=== PATIENT | female | born 1960 | race Caucasian/White ===

== ENCOUNTER 2024-01-25 10:59 | Outpatient (RCR) | payer MEDICAID, SELFPAY ==
--- NOTE | 2024-01-25 11:59 | CTCCONSULT_ITS ---
[facility] [address] [place], [place] [address] Consultation Note Date: 01/25/2024 MR#: [id number] Name: JOSE ASHBY : 1960 Dx: C82.93 Follicular lymphoma, unspecified, intra-abdominal lymph nodes Attending physician. DEBI Matthew Referring physician. Neal black Reason for consultation. 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 History of Present Illness: Patient is a 63-year-old lady admitted to [facility] in May with abdominal pain weight loss and subsequent PET 08/04/2023 revealed widespread adenopathy involving left neck chest abdomen pelvic right inguinal thigh regions. Excisional biopsy of right groin lymph node 07/01/2023 revealed follicular lymphoma. Undergoing systemic therapy with rituximab and Bendamu bruna under Dr. Larsen's direction. Subsequent PET scan 12/08/2023 shows marked improvement compared to the PET in July which only showed a slight uptake in left scapular region which may be artifactual. 01/09/2024 plain x-ray revealed moderate narrowing of the glenohumeral joint. Patient is quite bot hered by the left shoulder pain however despite taking oxycodone 5 mg twice daily. Attempt to supple mented with Tylenol or nonsteroidal such as ibuprofen were ineffective and caused stomach upset. Jackie mckeon referred for pain management. Past Medical History: JEFF 15 years ago pacemaker 20 years ago prior C-sections. Meds. Albuterol allopurinol Citra plan diazepam fluticasone inhaler gabapentin oxycodone 5 twice amado ly. 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 Nondrinker Review of Systems: Has significant pain in left shoulder with little relief with oxycodone 5 mg twice daily. Physical Exam: General: Well-appearing lady no acute distress HEENT: Atraumatic normocephalic extraocular intact no oral lesion no cervical or supraclavicular juilus opathy CV: Chest clear to auscultation heart regular rate and rhythm ABD: Soft no organomegaly or tenderness EXT: Has some tenderness in left scapular region; cannot abduct or flex left arm beyond about 90 degr ees. Assessment:1. 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 Brown?s direction. 2. Excellent radiographic (PET 12/08/2023) response, with pain in left shoulder appearing to be more degenerative joint related. (X-ray 01/09/2024) ) noticeably limited in left shoulder range of motio n. 3. Not having relief with oxycodone 5 twice daily. Cannot take ibuprofen due to GI upset problems. Has tried Tylenol without help as well. 4. Told patient that she can take oxycodone 5 3 times daily for the time being. Recommended to sup plement this with Tylenol every 6 as needed along with heating pads and range of motion exercises to left shoulder 5. I will see her again in 1 month time. Electronically signed by: Kapil Treviño MD, DABR 01/25/2024 11:57 AM Oxy
== END 2024-02-18 23:59 | disposition home or self-care (01) ==
LOC: SCTC 10:59
PROVIDERS: PCP Nurse Practitioner Family; Referring Provider Nurse Practitioner Family; Visit Provider Radiology Therapeutic Radiology
DX: C82.93 Follicular lymphoma, unspecified, intra-abdominal lymph nodes (principal)
CPT/HCPCS: 99213; G0463

== ENCOUNTER 2024-02-28 14:39 | Outpatient (RCR) | payer MEDICAID, SELFPAY ==
--- NOTE | 2024-02-22 12:12 | CTCFLWUP_ITS ---
Patient: ROSETTE KERNS : 1960 Page 6 of 6 FOLLOW UP NOTE DATE OF SERVICE 02/22/2024 NAME: ROSETTE KERNS ACCOUNT: [id number] : 1960 AGE: 63 DIAGNOSIS: stage IV follicular lymphoma grade 1?2 (07/01/2023) with pulmonary metastatic nodules, symp tomatic with abdominal pain and weight loss at the time of diagnosis s/p BR times 6 and now on mainta nce ritasuxin Completed rituximab and Bendamustine (08/24/2023??01/18/2024) History of pacemaker placement 20 years ago. Normal LVEF 50-55%. History of cigarette smoking stopped about 2 weeks ago. REASON FOR TODAY?S VISIT: she is complaining of ANDOMINAL cramps with the laxative she is taking. Pat ient is doing well otherwise. No new complains. HISTORY OF PRESENT ILLNESS: Rosette Kerns is a 63-year-old ENG speaking female with following oncology history. 05/31/2023: The patient was seen at [facility] emergency department due to abdominal pain. CT scan of the abdomen and pelvis with IV contrast was done 06/29/2023: Ms. Kerns was admitted to [facility]. CT scan of the chest, abdomen and pelvis with IV contrast was performed due to persistent abdominal p ain as well as due to findings on the previous CT scan. 07/01/2023: Ms. Kerns had right groin lymph node excisional biopsy as well as Chemo-Port placement. 07/26/2023: Echocardiogram?LVEF 50-55%. 08/04/2023: PET/CT scan 08/24/2023: Ms. Kerns received first cycle of rituximab and Bendamustine. PAST MEDICAL HISTORY: Follicular lymphoma - dx 07/01/23 COPD CHF Neuropathy GERD Insomia Depression / Anxiety PAST SURGICAL HISTORY: PC placement - 07/01/23 JEFF - 15 yrs ago Pacemaker - 20 yrs ago x 3 - 1983; 1987; 1990 MEDICATIONS: 1. albuterol sulfate - 90 mcg/actuation 2 Puff(s) Every 4 Hours 2. allopurinol - 300 mg 1 tab po q daily 3. citalopram - 20 mg 1 tab Daily 4. diazePAM - 2 mg 1 tab Every day before sleep 5. fluticasone propion-salmeteroL - 230-21 mcg/actuation 1 Inhaler Daily 6. gabapentin - 300 mg 1 Capsule Twice a Day 7. hydrocodone-acetaminophen - 5-325 mg 1 tab every 6 hours for 30 Days 8. linaCLOtide - 290 mcg 1 Capsule Daily 9. Linzess - 290 mcg 1 Capsule Daily 10. ondansetron - 8 mg 1 tab Three times a day 11. oxycodone - 5 mg 1 tab one tab po q 6 hours prn 12. pantoprazole - 40 mg 1 tab Daily 13. zolpidem - 5 mg 1 tab Every day before sleep Medications Last Reconciled by Katlyn Rogers MA on 11/02/2023 ALLERGIES: mirtazapine; latex; morphine REVIEW OF SYSTEMS: Neurological: No headache, seizures or blurring of vision. Gastrointestinal: No nausea, vomiting, diarrhea or constipation. Cardiovascular: No palpitations or angina pains. Respiratory: No cough, chest pain or shortness of breath. PHYSICAL EXAMINATION: VITAL SIGNS: Temperature?98.2, B/P?101/77, Oxygen?Saturation?98% Weight?128?lbs (Change?since?10/25/23: ?-7.2?lbs) PAIN: 0 - No pain EYE: Conjunctivae is white MOUTH: Oral cavity is dry. CHEST: Clear to auscultation. No wheezes or rales audible. CARDIAC: Rhythm regular, no murmurs or gallops present. ABDOMEN: Soft. No hepatomegaly. No splenomegaly. EXTREMITIES: No pedal edema or cyanosis Restricted range of motion at shoulders. 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 History of pacemaker placement 20 years ago. Normal the LVEF 50-55%. History of cigarette smoking stopped and is now on nicotine replacement PET scan do not show any lymphadenopathy but show activity in the left shoulder Patient likely have arthritis but also give a history of fall. Advised to follow-up on the x-ray to see if she has fracture Patient is on chronic pain management for her pain in her back which happened from her accident. David l refer to pain management Echo is ordered PET SCAN IN 3 MONTHS TO SEE RESPONSE TO TREATMENT LDH and URIC acid every 3 months Electronically Signed by: {Object.Sanct_ID*PnP.NameFL@M}, {Object.Sanct_ID*PnP.Suffix@U} D: {Object.Sanct_Date} T: {Object.Sanct_Time} CC: PCP: Referring: Nhung Barba This document was completed utilizing speech recognition software. Grammatical errors, random word in sertions, pronoun errors, and incomplete sentences are an occasional consequence of this system due t o software limitations, ambient noise, and hardware issues. Any formal questions or concerns about th e content, text or information contained within the body of this dictation should be directly address ed to the provider for clarification.
== END 2024-03-20 23:59 | disposition home or self-care (01) ==
LOC: SCTC 14:39
PROVIDERS: PCP Nurse Practitioner Family; Referring Provider Nurse Practitioner Family; Visit Provider Radiology Therapeutic Radiology
DX: C82.15 Follicular lymphoma grade II, lymph nodes of inguinal region and lower limb (principal); C78.00 Secondary malignant neoplasm of unspecified lung; Z87.891 Personal history of nicotine dependence; M19.012 Primary osteoarthritis, left shoulder
CPT/HCPCS: 96523; 99212; 99213; A4216; J1642; G0463

== ENCOUNTER → 2024-04-10 | Outpatient (CLI) | payer MEDICAID, SELFPAY ==
--- NOTE | 2024-04-10 14:00 | ECHO_ITS ---
Transthoracic Echo Report Ht (in): 62 Wt (lb): 130 Exam Location: Echo Lab Status: Preadmit Cube Machine Tender: Lindsay Quinones Indications: Procedure Performed: BP: / HR: Technical Quality: Fair MEASUREMENTS (Male / Female) Normal Values 2D ECHO LV Diastolic Diameter PLAX 4.4 cm 4.2 - 5.9 / 3.9 - 5.3 cm LV Systolic Diameter PLAX 3.4 cm IVS Diastolic Thickness 0.8 cm 0.6 - 1.0 / 0.6 - 0.9 cm LVPW Diastolic Thickness 0.8 cm 0.6 - 1.0 / 0.6 - 0.9 cm LV Relative Wall Thickness 0.3 LVOT Diameter 1.8 cm LA Volume Index 27.6 cm?/m? 16 - 28 cm?/m? Ascending Aorta Diameter 2.6 cm M-MODE LV Diastolic Diameter MM 5.2 cm 4.2 - 5.9 / 3.9 - 5.3 cm LV Systolic Diameter MM 4.0 cm LV Ejection Fraction MM Teich 46.7 % IVS Diastolic Thickness MM 1.1 cm 0.6 - 1.0 / 0.6 - 0.9 cm LVPW Diastolic Thickness MM 1.0 cm 0.6 - 1.0 / 0.6 - 0.9 cm LV Relative Wall Thickness MM 0.4 0.24 - 0.42 / 0.22 - 0.42 LV Mass Index MM 127.8 g/m? 49 - 115 / 43 - 95 g/m? Aortic Root Diameter MM 2.6 cm LA Systolic Diameter MM 3.2 cm LA Ao Ratio MM 1.2 AV Cusp Separation MM 1.5 cm DOPPLER AV Peak Velocity 155.0 cm/s AV Peak Gradient 9.6 mmHg AV Mean Gradient 5.0 mmHg AV Velocity Time Integral 29.9 cm AI Peak Velocity 375.0 cm/s AI Peak Gradient 56.3 mmHg AI Pressure Half Time 869.0 ms LVOT Peak Velocity 80.5 cm/s LVOT Peak Gradient 2.6 mmHg LVOT Velocity Time Integral 17.1 cm AV Area Cont Eq vti 1.5 cm? AV Area Cont Eq pk 1.3 cm? MV Peak Velocity 77.5 cm/s MV Peak Gradient 2.4 mmHg MV Mean Velocity 52.4 cm/s MV Mean Gradient 1.0 mmHg MV Area PHT 3.9 cm? MR Peak Velocity 284.0 cm/s MR Peak Gradient 32.3 mmHg Mitral E Point Velocity 59.7 cm/s Mitral A Point Velocity 81.5 cm/s Mitral E to A Ratio 0.7 LV E' Lateral Velocity 6.1 cm/s Mitral E to LV E' Lateral Ratio 9.8 LV E' Septal Velocity 6.7 cm/s Mitral E to LV E' Septal Ratio 8.9 TR Peak Velocity 213.0 cm/s TR Peak Gradient 18.1 mmHg FINDINGS Left Ventricle Normal left ventricular size, wall thickness. Low normal function. The ejection fraction is visuall y estimated at 45-50%. Right Ventricle The right ventricle is normal in size and systolic function. The estimated right ventricular systoli c pressure, 25mmHg. RAP 5. Pacing wire present. Left Atrium The left atrium is normal by two-dimensional, color flow and Doppler imaging with no structural abnormalities, no thrombus formation present. Right Atrium The right atrium is normal by two-dimensional imaging, color flow and Doppler imaging with no struct ural abnormalities, no thrombus formation present. Atrial Septum The interatrial septum appears normal with no evidence of a shunt. Aorta The aorta is normal by two-dimensional, color flow and Doppler interrogation. Mitral Valve The mitral valve is normal by two-dimensional, color flow and Doppler interrogation. There is mild mitral valve regurgitation. Aortic Valve The aortic valve is trileaflet and normal by two-dimensional, color flow and Doppler interrogation. There is mild aortic valve regurgitation. Tricuspid Valve The tricuspid valve is normal by two-dimensional, color flow and Doppler interrogation. There is mil d tricuspid valve regurgitation. Pulmonic Valve There is no significant pulmonic valve regurgitation. Vessels The pulmonary artery appears normal. The inferior vena cava pulmonary and hepatic veins appear ector l. Pericardium The pericardium is normal by two-dimensional imaging. There is no significant pericardial effusion. CONCLUSIONS Normal LV size. Low normal function. Estimated EF 45-50% Normal RV size and function. Pacing wire present Mild MR, AI, TR. Lin Santamaria (Electronically Signed) Final Date: 11 April 2024 08:22
== END | disposition home or self-care (01) ==
LOC: SDIM 13:38
PROVIDERS: PCP Nurse Practitioner Family; Referring Provider Internal Medicine Hematology & Oncology; Visit Provider Internal Medicine Hematology & Oncology
DX: I08.3 Combined rheumatic disorders of mitral, aortic and tricuspid valves (principal); C82.93 Follicular lymphoma, unspecified, intra-abdominal lymph nodes
CPT/HCPCS: 93306

== ENCOUNTER 2024-04-24 15:18 | Outpatient (RCR) | payer MEDICAID, SELFPAY ==
[2024-04-23 16:50] LABS: Basophils # (Auto) 0.1 Thou/mm3 (0.0-0.2); Basophils % (Auto) 1 % (0-2.5); Eosinophils # (Auto) 0.2 Thou/mm3 (0.0-0.5); Eosinophils % (Auto) 4 % (0-10); Hematocrit 30.8 % (36.0-46.0); Hemoglobin 10.6 g/dL (12.0-16.0); Immature Granulocytes % (Auto) 1 % (0-0); Immature Granulocytes Auto 0.03 Thou/mm3 (0.00-0.00); Lymphocytes # (Auto) 0.5 Thou/mm3 (1.0-4.8); Lymphocytes % (Auto) 10 % (10-50); Mean Corpuscular HGB Conc 34.4 g/dl (31.0-37.0); Mean Corpuscular Hemoglobin 31.3 pg (25.0-35.0); Mean Corpuscular Volume 91 fL (80-100); Monocytes # (Auto) 0.7 Thou/mm3 (0.0-0.8); Monocytes % (Auto) 16 % (0-12); Neutrophils # (Auto) 3.1 Thou/mm3 (1.8-7.7); Neutrophils % (Auto) 67 % (37-80); Nucleated Red Blood Cell % 0 /100 WBC (0); Platelet Count 176 Thou/mm3 (140-440); Red Blood Count 3.39 Miln/mm3 (4.00-5.20); White Blood Count 4.6 Thou/mm3 (3.6-11.0)
[2024-04-23 17:11] LABS: Alanine Aminotransferase 19 U/L (10-49); Albumin, Serum 4.1 gm/dL (3.4-4.8); Albumin/Globulin Ratio 1.8 (1.2-2.2); Alkaline Phosphatase 63 U/L (46-116); Anion Gap 7 (7-16); Aspartate Amino Transferase 25 U/L (0-34); BUN/Creatinine Ratio 16 Ratio (12-20); Bilirubin,Total 0.9 mg/dL (0.3-1.2); Blood Urea Nitrogen 13 mg/dL (9-23); Calcium 9.1 mg/dL (8.3-10.6); Calcium (Corrected) 9.1 mg/dL (8.5-10.1); Carbon Dioxide 25.1 mMol/L (20.0-31.0); Chloride 107 mMol/L (98-107); Creatinine (Component) 0.8 mg/dL (0.6-1.3); Globulin 2.3 gm/dL (2.3-3.5); Glucose 75 mg/dL (74-106); Osmolality,Calculated 276 (275-295); Potassium 3.6 mMol/L (3.4-5.1); Sodium 139 mMol/L (136-145); Total Protein 6.4 gm/dL (5.7-8.2); eGFR > 60 See Note
--- NOTE | 2024-04-29 21:04 | CTCFLWUP_ITS ---
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 Normal LVEF 50-55%. History of cigarette smoking stopped about 2 weeks ago. DATE OF DIAGNOSIS: 07/01/2023 follicular lymphoma STAGE/TNM: Stage IV grade 1-2 Enlarged lymph nodes both in the chest as well as abdomen and pelvis TREATMENT HISTORY: Care?Plan Start?Date Cycle Day Intent Rituxan?375?+?Bendamustine?90?Krystal 08/24/2023 1 28 Palliative Rituximab?375mg/m*2?maint?q?2month 03/27/2024 1 60 Maintenance HISTORY OF PRESENT ILLNESS: Rosette Ashby is a 63-year-old ENG speaking female with following oncology history. 05/31/2023: The patient was seen at [facility] emergency department due to abdominal pain. CT scan of the abdomen and pelvis with IV contrast was done 06/29/2023: Ms. Ahsby was admitted to [facility]. CT scan of the chest, abdomen and pelvis with IV contrast was performed due to persistent abdominal pain as well as due to findings on the previous CT scan. 07/01/2023: Ms. Ashby had right groin lymph node excisional biopsy as well as Chemo-Port placement. 07/26/2023: Echocardiogram?LVEF 50-55%. 08/04/2023: PET/CT scan 08/24/2023: Ms. Ashby received first cycle of rituximab and Bendamustine. OTHER MEDICAL HISTORY/CONDITIONS: Follicular lymphoma - dx 07/01/23 COPD CHF Neuropathy GERD Insomia Depression / Anxiety PC placement - 07/01/23 JEFF - 15 yrs ago Pacemaker - 20 yrs ago x 3 - 1983; 1987; 1990 FAMILY HISTORY: Cancer?History:?Pt?adopted SOCIAL HISTORY: Occupational?History:?Retired - [employer] Education?Level:?College Graduate, 2 year degree Marital?Status:? Tobacco?Pack?per?Day:?1 Tobacco?Use?Years:?45 Tobacco?Use:?Quit?2?weeks?ago ETOH?Use:?Denies Drug?Note:?Smokes marijuana 3 times / week x 2 yrs Social?History?Note:?Lives?with? [employer] HISTORY: Menarche?-?Age:?15 Menopause:?20yrs?ago :?3 Live?Births:?3 Age?1st?:?22 MEDICATIONS: 1. albuterol sulfate - 90 mcg/actuation 2 Puff(s) Every 4 Hours 2. citalopram - 20 mg 1 tab Daily 3. diazePAM - 2 mg 1 tab Every day before sleep 4. fluticasone propion-salmeteroL - 230-21 mcg/actuation 1 Inhaler Daily 5. gabapentin - 300 mg 1 Capsule Twice a Day 6. linaCLOtide - 290 mcg 1 Capsule Daily 7. Linzess - 290 mcg 1 Capsule Daily 8. ondansetron - 8 mg 1 tab Three times a day 9. oxycodone - 5 mg 1 tab four times a day 10. pantoprazole - 40 mg 1 tab Daily 11. zolpidem - 5 mg 1 tab Every day before sleep Medications Last Reconciled by Princess Jasso MA on 04/24/2024 ALLERGIES: mirtazapine; latex; morphine REVIEW OF SYSTEMS: A complete 14-point review of systems was performed and is negative except as noted in interval history. PHYSICAL EXAMINATION: VITAL SIGNS: Temperature?98, B/P?128/80, Oxygen?Saturation?99% Weight?132.4?lbs (Change?since?04/23/24:?2?lbs) PAIN: 0 - No pain ECOG Performance Status: 0 - Asymptomatic and fully active GENERAL APPEARANCE: Appears well, in no apparent distress, appropriately interactive. HEENT: Normocephalic, no temporal wasting, normal conjunctiva, no scleral icterus, normal hearing, lips without lesions, neck normal range of motion. Small less than a centimeter lymph nodes in the neck CARDIOVASCULAR: Not assessed. PULMONARY: Normal respiratory effort, no respiratory distress or use of accessory muscles, speaking in full sentences, no tachypnea. EXTREMITIES: No pedal edema or cyanosis. SKIN: Normal skin appearance. NEUROLOGIC: Alert and oriented x4. PSHYCHIATRIC: Appropriate affect, mood normal, behavior normal, intact thought and speech. 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 Normal LVEF 50-55%. Continue Rituxan #2 history of cigarette smoking stopped Patient's last PET CT scan showed no hypermetabolism except in the left shoulder and x-ray was done and it showed arthritis.#2 history of pacemaker placement 20 years ago. Normal the LVEF 50-55%. #3 history of cigarette smoking stopped and is now on nicotine replacement #4 pain management PET scan do not show any lymphadenopathy but show activity in the left shoulder Patient likely have arthritis but also give a history of fall. Advised to follow-up on the x-ray to see if she has fracture Patient is on chronic pain management with Dr. Treviño. Advised to follow-up with him. CBC CMP LDH uric acid RETURN TO CLINIC: 4 months BILLING AND COMPLIANCE: I reviewed external records from providers outside my specialty as summarized above. I spent a total of 50 minutes on this patient?s care on the day of their visit excluding time spent related to any billed procedures. This time includes time spent with the patient as well as time spent documenting in the medical record, reviewing patients records and tests, obtaining history, placing orders, communicating with other healthcare professionals, counseling the patient, family or caregiver, and/or care coordination for the diagnoses above. Electronically Signed by: Nelson Brown MD T: 9:01 PM CC: PCP: Referring: Nhung Barba This document was completed utilizing speech recognition software. Grammatical errors, random word insertions, pronoun errors, and incomplete sentences are an occasional consequence of this system due to software limitations, ambient noise, and hardware issues. Any formal questions or concerns about the content, text or information contained within the body of this dictation should be directly addressed to the provider for clarification.
[2024-05-21 11:16] LABS: Basophils # (Auto) 0.1 Thou/mm3 (0.0-0.2); Basophils % (Auto) 1 % (0-2.5); Eosinophils # (Auto) 0.2 Thou/mm3 (0.0-0.5); Eosinophils % (Auto) 4 % (0-10); Hematocrit 35.5 % (36.0-46.0); Hemoglobin 11.8 g/dL (12.0-16.0); Immature Granulocytes % (Auto) 0 % (0-0); Immature Granulocytes Auto 0.02 Thou/mm3 (0.00-0.00); Lymphocytes # (Auto) 0.5 Thou/mm3 (1.0-4.8); Lymphocytes % (Auto) 10 % (10-50); Mean Corpuscular HGB Conc 33.2 g/dl (31.0-37.0); Mean Corpuscular Hemoglobin 30.8 pg (25.0-35.0); Mean Corpuscular Volume 93 fL (80-100); Monocytes # (Auto) 0.7 Thou/mm3 (0.0-0.8); Monocytes % (Auto) 14 % (0-12); Neutrophils # (Auto) 3.4 Thou/mm3 (1.8-7.7); Neutrophils % (Auto) 70 % (37-80); Nucleated Red Blood Cell % 0 /100 WBC (0); Platelet Count 254 Thou/mm3 (140-440); RDW Standard Deviation 42.6 fL (36.4-46.3); Red Blood Count 3.83 Miln/mm3 (4.00-5.20); White Blood Count 4.9 Thou/mm3 (3.6-11.0)
[2024-05-21 11:38] LABS: Alanine Aminotransferase 26 U/L (10-49); Albumin, Serum 4.9 gm/dL (3.4-4.8); Albumin/Globulin Ratio 2.2 (1.2-2.2); Alkaline Phosphatase 75 U/L (46-116); Anion Gap 10 (7-16); Aspartate Amino Transferase 37 U/L (0-34); BUN/Creatinine Ratio 11 Ratio (12-20); Bilirubin,Total 0.9 mg/dL (0.3-1.2); Blood Urea Nitrogen 10 mg/dL (9-23); Calcium 10.1 mg/dL (8.3-10.6); Calcium (Corrected) 10.1 mg/dL (8.5-10.1); Carbon Dioxide 25.4 mMol/L (20.0-31.0); Chloride 107 mMol/L (98-107); Creatinine (Component) 0.9 mg/dL (0.6-1.3); Globulin 2.2 gm/dL (2.3-3.5); Glucose 93 mg/dL (74-106); Osmolality,Calculated 282 (275-295); Potassium 3.4 mMol/L (3.4-5.1); Sodium 142 mMol/L (136-145); Total Protein 7.1 gm/dL (5.7-8.2); eGFR > 60 See Note
== END 2024-05-18 23:59 | disposition home or self-care (01) ==
LOC: SCTC 15:18
PROVIDERS: Internal Medicine Hematology & Oncology; PCP Nurse Practitioner Family; Referring Provider Nurse Practitioner Family; Visit Provider Nurse Practitioner Family
DX: C82.13 Follicular lymphoma grade II, intra-abdominal lymph nodes (principal); C78.00 Secondary malignant neoplasm of unspecified lung; Z87.891 Personal history of nicotine dependence; M19.012 Primary osteoarthritis, left shoulder
CPT/HCPCS: 36591; 80053; 85025; 96374; 99212; A4216; J1642; J2997; G0463

== ENCOUNTER 2024-05-29 13:43 | Outpatient (RCR) | payer MEDICAID, SELFPAY | END 2024-06-18 23:59 | disposition home or self-care (01) | LOC: SCTC 13:43 | PROVIDERS: PCP Nurse Practitioner Family; Referring Provider Nurse Practitioner Family; Visit Provider Radiology Therapeutic Radiology | DX: Z51.11 Encounter for antineoplastic chemotherapy (principal); C82.13 Follicular lymphoma grade II, intra-abdominal lymph nodes; C78.00 Secondary malignant neoplasm of unspecified lung; G89.3 Neoplasm related pain (acute) (chronic) | CPT/HCPCS: 36591; 80053; 85025; 96413; 96415; 99213; A4216; J1642; J7040; J7050; Q5115; A9270; G0463 ==

== ENCOUNTER 2024-06-18 08:00 | Emergency (ER) | payer MEDICAID, SELFPAY ==
[2024-06-18 08:01] VITALS: BMI 24.5
[2024-06-18 08:12] VITALS: BP 147/74; PULSE 79; RESP 17; TEMP 36.8; O2SAT 97
[2024-06-18 08:36] LABS: Collection Type, Urine Clean Catch
[2024-06-18 08:46] LABS: Basophils # (Auto) 0.1 Thou/mm3 (0.0-0.2); Basophils % (Auto) 2 % (0-2.5); Eosinophils # (Auto) 0.4 Thou/mm3 (0.0-0.5); Eosinophils % (Auto) 7 % (0-10); Hematocrit 32.9 % (36.0-46.0); Hemoglobin 11.4 g/dL (12.0-16.0); Immature Granulocytes % (Auto) 0 % (0-0); Immature Granulocytes Auto 0.02 Thou/mm3 (0.00-0.00); Lymphocytes # (Auto) 0.5 Thou/mm3 (1.0-4.8); Lymphocytes % (Auto) 10 % (10-50); Mean Corpuscular HGB Conc 34.7 g/dl (31.0-37.0); Mean Corpuscular Hemoglobin 31.1 pg (25.0-35.0); Mean Corpuscular Volume 90 fL (80-100); Monocytes # (Auto) 0.8 Thou/mm3 (0.0-0.8); Monocytes % (Auto) 17 % (0-12); Neutrophils # (Auto) 3.2 Thou/mm3 (1.8-7.7); Neutrophils % (Auto) 64 % (37-80); Nucleated Red Blood Cell % 0 /100 WBC (0); Platelet Count 244 Thou/mm3 (140-440); RDW Standard Deviation 41.7 fL (36.4-46.3); Red Blood Count 3.66 Miln/mm3 (4.00-5.20)
[2024-06-18 08:52] LABS: Bacteria,Urine 1+; Bilirubin,Urine Negative (Negative); Blood,Urine Negative (Negative); Clarity,Urine Clear (Clear/Hazy); Color,Urine Lt-Yellow (Lt Yel-Yel); Glucose, Urine Negative (Negative); Ketones,Urine Negative (Negative); Leukocyte Esterase,Urine Negative (Negative); Nitrite,Urine Negative (Negative); Protein,Urine Negative (Neg - Trace); RBC,Urine 1 /hpf (0-3); Specific Gravity,Urine 1.012 (1.001-1.035); Squamous Epithelial Cell,Urine 4 /hpf (0-5); Urobilinogen,Urine Negative mg/dL (0.0-1.0); WBC,Urine 1 /hpf (0-5)
[2024-06-18 08:53] LABS: Culture Indicated,Urine Yes
[2024-06-18 09:10] LABS: Alanine Aminotransferase 15 U/L (10-49); Albumin, Serum 4.4 gm/dL (3.4-4.8); Albumin/Globulin Ratio 1.8 (1.2-2.2); Alkaline Phosphatase 59 U/L (46-116); Anion Gap 7 (7-16); Aspartate Amino Transferase 24 U/L (0-34); BUN/Creatinine Ratio 11 Ratio (12-20); Bilirubin,Total 0.9 mg/dL (0.3-1.2); Blood Urea Nitrogen 11 mg/dL (9-23); Calcium 9.3 mg/dL (8.3-10.6); Calcium (Corrected) 9.3 mg/dL (8.5-10.1); Carbon Dioxide 24.6 mMol/L (20.0-31.0); Chloride 110 mMol/L (98-107); Estimated Creatinine Clearance 50.1 mL/min (>60); Globulin 2.4 gm/dL (2.3-3.5); Glucose 96 mg/dL (74-106); Lipase 40 U/L (12-53); Osmolality,Calculated 282 (275-295); Sodium 142 mMol/L (136-145); Total Protein 6.8 gm/dL (5.7-8.2); eGFR > 60 See Note
--- NOTE | 2024-06-18 09:36 | EDNOTE_ITS ---
<Statement entered by Angle Adler MD - 06/18/24 17:56> As co-signing physician, I was present and available for consult prn. I concur with the plan and care as documented by the midlevel provider. ED Abdominal Pain RME/HPI General Chief Complaint: Abdominal Pain Stated complaint: RIGHT FLANK PAIN WITH RASH TO AREA [id number] Time seen by provider: 06/18/24 08:19 Arrival date/time: 06/18/24 08:00 63-year-old female with lymphoma presents to the emergency department today with complaints of rash to the right flank patient is concerned that it might be her kidney causing to have pain Limitations: no limitations Related Data Home Medications ?Medication ?Instructions ?Recorded ?Confirmed diazepam 2 mg tablet (Valium) 2 mg PO HS #0 tabs 08/0206/30/23 albuterol sulfate 90 mcg/actuation 2 puff inhalation Q 4H PRN SOB 05/30/19 06/30/23 aerosol inhaler gabapentin 300 mg capsule 300 mg PO BID 05/30/1906/29 citalopram 20 mg tablet 20 mg PO QDAY 06/27/2306/29 linaclotide 290 mcg capsule 290 mcg PO QDAY 06/27/23 0 06/30/23 zolpidem 5 mg tablet 5 mg PO QHS 06/27/23 4 fluticasone propionate 230 See Rx Instructions .Route .COMPLEX 07/01/23 07/01/23 mcg-salmeterol 21 mcg/actuation HFA inhaler Previous Rx's ?Medication ?Instructions ?Recorded pantoprazole 40 mg tablet,delayed 40 mg PO QDAY #30 ta bs 07/10/19 release (Protonix) valacyclovir 1 gram tablet 1,000 mg PO TID 7 days #21 tabs 06/18/24 Allergies Allergy/AdvReac Type Severity Reaction Status Date / Time adhesive tape Allergy Severe BLISTERS Verified 06/18/24 08:03 morphine Allergy Severe Hives Verified 06/18/24 08:03 Review of Systems Review of Systems Systems Reviewed: All systems reviewed, normal except as documented Constitutional Constitutional: Reports system reviewed and no additional complaints, except as documented, Denies fever(s) and Denies headache(s) Eyes Eyes: Reports system reviewed and no additional complaints, except as documented and Denies blurry vision ENT Ears, Nose, Mouth, and Throat: Reports system reviewed and no additional complaints, except as documented, Denies headache(s), Denies nasal congestion and Denies nasal discharge Cardiovascular Cardiovascular: Reports system reviewed and no additional complaints, except as documented, Denies chest pain and Denies dyspnea Respiratory Respiratory: Reports system reviewed and no additional complaints, except as documented, Denies chest congestion, Denies cough and Denies dyspnea Gastrointestinal Gastrointestinal: Reports system reviewed and no additional complaints, except as documented and Denies abdominal pain Integumentary/Breasts Skin/Breast: Reports system reviewed and no additional complaints, except as documented and Reports other (Shingles right flank) Neurologic Neurologic: Reports system reviewed and no additional complaints, except as documented, Reports as per HPI and Denies headache(s) Past Medical History Past Medical History NEUROLOGIC: Negative Seizures CARDIAC: Positive Cardiac Disorders and Congestive Heart Failure RESPIRATORY: Positive Chronic Obstructive Pulmonary Disease (COPD) and Asthma GENITOURINARY: Negative Renal Disease ENDOCRINE: Negative Diabetes Mellitus Type 1 or Diabetes Mellitus Type 2 HEMATOLOGIC: Negative Sickle Cell Disease OTHER HISTORY: Positive Blood Transfusions; Negative Blood Transfusion Reaction or Anesthesia Reactions Surgical History SURGICAL: Positive Pacemaker and Hysterectomy Social History SMOKING STATUS: Former smoker SECOND HAND EXPOSURE: No SUBSTANCE USE: marijuana (smokes daily) ED Exam General Limitations: Present no limitations General appearance: Present alert and in no apparent distress Head Head exam: Present atraumatic Eye Eye exam: Present normal appearance, PERRL and EOMI ENT ENT exam: Present normal exam, normal oropharynx and mucous membranes moist Neck Neck exam: Present normal inspection, full ROM and trachea midline Chest Chest inspection: Present normal inspection and symmetric chest wall rise Respiratory Respiratory exam: Present normal lung sounds bilaterally Cardiovascular Cardiovascular exam: Present regular rate, normal rhythm and normal heart sounds Abdominal Exam Abdominal exam: Present soft and normal bowel sounds Extremities Exam Extremities exam: Present normal inspection and full ROM Back Exam Back exam: Present normal inspection and full ROM Neurological Exam Neurological exam: Present alert, oriented X3 and CN II-XII intact Psychiatric Psychiatric exam: Present normal affect and normal mood Skin Skin exam: Present warm, dry and other (Painful vesicular rash right flank) Course Quality Measures none Orders Category Date Time Status CBC Stat Lab 06/18/24 08:33 Completed Comprehensive Metabolic Panel Stat Lab 06/18/24 08:33 Completed Lipase Stat Lab 06/18/24 08:33 Completed UA, C/S IF [Urinalysis, C/S if Indicated] Stat Lab 06/18/24 08:20 Completed Urine Culture Stat Lab 06/18/24 08:20 Received Ketorolac Inj [Toradol Inj] Med 06/18/24 09:37 Discontinued 30 mg IM X1 ONE Potassium Chloride [K-Dur] Med 06/18/24 09:37 Discontinued 40 meq PO X1 ONE Vital Signs Vital signs: Vital Signs Temperature 98.3 F 06/18/24 08:12 Pulse Rate 79 06/18/24 08:12 Respiratory Rate 17 06/18/24 08:12 Blood Pressure 147/74 H 06/18/24 08:12 Pulse Oximetry (%) 97 06/18/24 08:12 Oxygen Delivery Method Room Air 06/18/24 08:12 O2 saturation 97% room air within normal limits Abdominal Pain MDM MDM Narrative MDM Narrative:: 63-year-old female with lymphoma presents to the emergency department today with complaints of rash to the right flank patient is concerned that it might be her kidney causing to have pain On exam patient clearly has shingles to the right flank region Patient given Toradol for pain Lab work obtained per the patient's request kidney function unremarkable Incidentally patient noted to be hypokalemic at 3.0 patient given 1 dose of potassium here, discharged with valacyclovir Patient reports that she has oxycodone at home instructed her to take the medication Patient discharged home in no distress to follow-up with primary care doctor in the next 24 to 48 hours and for any worsening symptoms to return to the ER immediately Patient data External records reviewed:: [facility] previous records Clinical information provided by:: patient Social determinants that could affect healthcare access:: none Patient has the following chronic illnesses:: See history How is presenting disease/condition affected by chronic disease/condition?: exacerbated by Evaluation data The following diagnostics were reviewed and interpreted by me:: lab results Lab and/or radiology exams considered but not ordered:: Lab obtain Interpretation Summary: Obtain Medications / Prescriptions Medications or Prescriptions considered but not ordered:: Given Medication administrations:: Medication Administration History Discontinued Medications Ketorolac Tromethamine (Ketorolac Inj 30 Mg/Ml Vial) 30 mg IM X1 ONE Stop: 06/18/24 09:38 Last Admin: 06/18/24 10:19 Dose: 30 mg Documented By: ANKUR Potassium Chloride (Potassium Chloride 20 Meq Tabcr) 40 meq PO X1 ONE Stop: 06/18/24 09:38 Last Admin: 06/18/24 10:18 Dose: 40 meq Documented By: DB Given Consultations Consultation(s) initiated? (list below): No Diagnosis Differential diagnosis abdominal pain: abdominal pain, calculus of kidney, constipation, pancreatitis and other Most likely diagnosis given after review of the tests above:: Herpes zoster Admission Indicated Admission indicated?: not indicated Admission Request Was there a request for admission?: No Disposition Plan Disposition Plan: Discharge Discharge Attestation Discharge Attestation: The patient and all family members were given an opportunity to ask questions and understood the discharge instructions. Discharge instructions specifically effects, indications for sooner follow up or return to the emergency department, and the expected course of current diagnosis. Patient condition: Stable Discharge Plan Plan Patient Disposition: HOME (Self Care) Disposition Comment: Stable Prescriptions/Referrals Prescriptions/Med Rec: New valacyclovir 1 gram tablet 1,000 mg PO TID 7 Days Qty: 21 0RF No Action citalopram 20 mg tablet 20 mg PO QDAY linaclotide 290 mcg capsule 290 mcg PO QDAY zolpidem 5 mg tablet 5 mg PO QHS Rx Instructions: may repeat once if no response in 30-60 minutes diazepam [Valium] 2 MG tablet 2 mg PO HS Qty: 0 gabapentin 300 mg Capsule 300 mg PO BID albuterol sulfate 90 mcg/actuation HFA aerosol inhaler 2 puff INH Q4H PRN (Reason: SOB) pantoprazole [Protonix] 40 mg tablet,delayed release (DR/EC) 40 mg PO QDAY Qty: 30 0RF fluticasone propion-salmeterol 230-21 mcg/actuation Hfa Aerosol Inhaler See Rx Instructions .ROUTE .COMPLEX Rx Instructions: one inhalation daily Referrals: Nhung Barba NP [Primary Care Provider] - In 1 week Problem List Clinical Impression: Shingles rash, Acute hypokalemia Patient/Caregiver Discharge Instructions Education Materials: Shingles (Herpes Zoster) Additional Instructions: Please follow up with your primary care doctor in the next 24-48hrs for any worsening symptoms return here immediately Print Language: Romanian Stand Alone Forms: Heike Award Info., Patient Portal Info Letter PA/BANK SECRECY ACT OFFICER Supervising Physician PA/BANK SECRECY ACT OFFICER Supervising Physician: Dr. ADLER
[2024-06-18] MEDS: POTASSIUM CHLORIDE 20 mEq TABCR 40 MEQ PO (10:18)
[2024-06-18] MEDS: KETOROLAC INJ 30 MG/ML VIAL IM (10:19)
== END 2024-06-18 10:23 | disposition home or self-care (01) ==
PROVIDERS: Nurse Practitioner Primary Care; Emergency Provider Emergency Medicine; PCP Nurse Practitioner Family
DX: B02.9 Zoster without complications (principal); E87.6 Hypokalemia
CPT/HCPCS: 36415; 80053; 81001; 83690; 85025; 87086; 96372; 99283; J1885; A9270

== ENCOUNTER 2024-06-28 13:21 | Outpatient (RCR) | payer MEDICAID, SELFPAY ==
--- NOTE | 2024-06-26 23:48 | CTCFLWUP_ITS ---
Patient: JOSE ASHBY : 1960 Page 3 of 4 FOLLOW UP NOTE DATE OF SERVICE: 06/26/2024 NAME: JOSE ASHBY ACCOUNT: [id number] : 1960 AGE: 63 INTERVAL HISTORY: Patient is complaining of insect bite on her thigh which has been blistering. She does not know what caused to the bite exactly. She has fatigue and tiredness. She does not want to go to the emergency room. ONCOLOGY HISTORY: DIAGNOSIS: Follicular lymphoma, unspecified, intra-abdominal lymph nodes [ICD10] C82.93 DATE OF DIAGNOSIS: STAGE/TNM: TREATMENT HISTORY: Care?Plan Start?Date Cycle Day Intent Rituxan?375?+?Bendamustine?90?Krystal 08/24/2023 1 28 Palliative Rituximab?375mg/m*2?maint?q?2month 05/22/2024 1 60 Maintenance HISTORY OF PRESENT ILLNESS: OTHER MEDICAL HISTORY/CONDITIONS: Follicular lymphoma - dx 07/01/23 COPD CHF Neuropathy GERD Insomia Depression / Anxiety PC placement - 07/01/23 JEFF - 15 yrs ago Pacemaker - 20 yrs ago x 3 - 1983; 1987; 1990 FAMILY HISTORY: Cancer?History:?Pt?adopted SOCIAL HISTORY: Occupational?History:?Retired - [employer] Education?Level:?College Graduate, 2 year degree Marital?Status:? Tobacco?Pack?per?Day:?1 Tobacco?Use?Years:?45 Tobacco?Use:?Quit?2?weeks?ago ETOH?Use:?Denies Drug?Note:?Smokes marijuana 3 times / week x 2 yrs Social?History?Note:?Lives?with? REHABILITATION PSYCHOLOGIST HISTORY: Menarche?-?Age:?15 Menopause:?20yrs?ago :?3 Live?Births:?3 Age?1st?:?22 MEDICATIONS: 1. acyclovir - 400 mg 1 tab twice Daily 2. albuterol sulfate - 90 mcg/actuation 2 Puff(s) Every 4 Hours 3. Augmentin - 500-125 mg 1 tab 1 tab twice dialy 4. citalopram - 20 mg 1 tab Daily 5. diazePAM - 2 mg 1 tab Every day before sleep 6. fluticasone propion-salmeteroL - 230-21 mcg/actuation 1 Inhaler Daily 7. gabapentin - 300 mg 1 Capsule Twice a Day 8. hydrOXYzine HCl - 50 mg 1 tab Daily 9. linaCLOtide - 290 mcg 1 Capsule Daily 10. Linzess - 290 mcg 1 Capsule Daily 11. lisinopril - 10 mg 1 tab Daily 12. ondansetron - 8 mg 1 tab Three times a day 13. oxycodone - 5 mg 1 tab four times a day 14. pantoprazole - 40 mg 1 tab Daily 15. zolpidem - 5 mg 1 tab Every day before sleep Medications Last Reconciled by Princess Paredes MD on 06/26/2024 ALLERGIES: mirtazapine; latex; morphine REVIEW OF SYSTEMS: A complete 14-point review of systems was performed and is negative except as noted in interval history. PHYSICAL EXAMINATION: VITAL SIGNS: Temperature?98.6, B/P?123/86, Oxygen?Saturation?98% Weight?134?lbs (Change?since?05/29/24:?1?lbs) PAIN: 2 - Mild pain ECOG Performance Status: 1 - Symptomatic; ambulatory; restricted in strenuous activity GENERAL APPEARANCE: Appears well, in no apparent distress, appropriately interactive. HEENT: Normocephalic, no temporal wasting, normal conjunctiva, no scleral icterus, normal hearing, lips without lesions, neck normal range of motion. CARDIOVASCULAR: Not assessed. PULMONARY: Normal respiratory effort, no respiratory distress or use of accessory muscles, speaking in full sentences, no tachypnea. EXTREMITIES: No pedal edema or cyanosis. SKIN: Redness with some blistering over the left thigh noted over the camera Shingles noted over the belly NEUROLOGIC: Alert and oriented x4. PSHYCHIATRIC: Appropriate affect, mood normal, behavior normal, intact thought and speech. LABORATORY DATA: I have personally reviewed and interpreted each of the patient?s relevant lab tests, abnormal findings are below: Date 05/21/24 06/18/24 ??WHITE?BLOOD?COUNT?(Thou/mm3) 4.9 5.0 ??RED?BLOOD?COUNT?(Miln/mm3) 3.83?L 3.66?L ??HEMOGLOBIN?(gm/dl) 11.8?L 11.4?L ??HEMATOCRIT?(%) 35.5?L 32.9?L ??PLATELET?COUNT?(Thou/mm3) 254 244 ??NEUTROPHILS?%,?AUTO?(%) 70 64 ??LYMPH?%,?AUTO?(%) 10 10 ??NEUTROPHILS,?AUTO?(Thou/mm3) 3.4 3.2 ??GLUCOSE,RANDOM?(mg/dL) 93 96 ??BLOOD?UREA?NITROGEN?(mg/dL) 10 11 ??CREATININE?(mg/dL) 0.90 1.00 ??SODIUM?(mmol/L) 142 142 ??POTASSIUM?(mmol/L) 3.4 3.0?L ??CHLORIDE?(mmol/L) 107 110?H ??CrCl?(CandG)?(ml/min) 61.63 55.55 ??AST/SGOT?(Unit/L) 37?H 24 ??ALT/SGPT?(Unit/L) 26 15 ??ALKALINE?PHOSPHATASE?(Unit/L) 75 59 ??BILIRUBIN,?TOTAL?(mg/dL) 0.9 0.9 ??PROTEIN?TOTAL?(gm/dl) 7.1 6.8 ??ALBUMIN,?SERUM?(gm/dl) 4.9?H 4.4 ??GLOBULIN?(gm/dl) 2.2?L 2.4 ??ALBUMIN/GLOBULIN?RATIO 2.2 1.8 ??CALCIUM,?SERUM?(mg/dL) 10.1 9.3 ??CALCIUM?SERUM?(CORRECTED)?(mg/dL) 10.1 9.3 ASSESSMENT/PLAN: #1 cellulitis of her thigh and shingles on the abdomen in patient with 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 Normal LVEF 50-55%. Will start acyclovir 400 mg twice daily Will start Augmentin for her thigh She is having cellulitis likely Advised patient to go to the emergency room Will will bring her to the clinic as patient is unwilling to the emergency room Will treat her with IV fluids tomorrow and repeat labs #2 history of cigarette smoking stopped Patient's last PET CT scan showed no hypermetabolism except in the left shoulder and x-ray was done and it showed arthritis.#2 history of pacemaker placement 20 years ago. Normal the LVEF 50-55%. #3 history of cigarette smoking stopped and is now on nicotine replacement #4 pain management PET scan do not show any lymphadenopathy but show activity in the left shoulder Patient likely have arthritis but also give a history of fall. Advised to follow-up on the x-ray to see if she has fracture Patient is on chronic pain management with Dr. Treviño. Advised to follow-up with him. ORDERS: Order # Description [id number] Comprehensive Metabolic Panel - 12 + CBC with Auto Diff [id number] MD Follow Up 3 Months RETURN TO CLINIC: Tomorrow BILLING AND COMPLIANCE: I reviewed external records from providers outside my specialty as summarized above. I spent a total of 50 minutes on this patient?s care on the day of their visit excluding time spent related to any billed procedures. This time includes time spent with the patient as well as time spent documenting in the medical record, reviewing patients records and tests, obtaining history, placing orders, communicating with other healthcare professionals, counseling the patient, family or caregiver, and/or care coordination for the diagnoses above. Electronically Signed by: {Object.Sanct_ID*PnP.NameFL@M}, {Object.Sanct_ID*PnP.Suffix@U} D: {Object.Sanct_Date} T: {Object.Sanct_Time} CC: PCP: Referring: Nhung Barba This document was completed utilizing speech recognition software. Grammatical errors, random word insertions, pronoun errors, and incomplete sentences are an occasional consequence of this system due to software limitations, ambient noise, and hardware issues. Any formal questions or concerns about the content, text or information contained within the body of this dictation should be directly addressed to the provider for clarification.
[2024-06-28 14:05] LABS: Basophils # (Auto) 0.1 Thou/mm3 (0.0-0.2); Basophils % (Auto) 2 % (0-2.5); Eosinophils # (Auto) 0.5 Thou/mm3 (0.0-0.5); Eosinophils % (Auto) 7 % (0-10); Hematocrit 32.2 % (36.0-46.0); Immature Granulocytes % (Auto) 1 % (0-0); Immature Granulocytes Auto 0.03 Thou/mm3 (0.00-0.00); Lymphocytes # (Auto) 0.7 Thou/mm3 (1.0-4.8); Lymphocytes % (Auto) 10 % (10-50); Mean Corpuscular HGB Conc 34.2 g/dl (31.0-37.0); Mean Corpuscular Hemoglobin 31.6 pg (25.0-35.0); Mean Corpuscular Volume 93 fL (80-100); Monocytes # (Auto) 0.9 Thou/mm3 (0.0-0.8); Monocytes % (Auto) 13 % (0-12); Neutrophils # (Auto) 4.5 Thou/mm3 (1.8-7.7); Neutrophils % (Auto) 68 % (37-80); Nucleated Red Blood Cell % 0 /100 WBC (0); Platelet Count 271 Thou/mm3 (140-440); RDW Standard Deviation 43.8 fL (36.4-46.3); Red Blood Count 3.48 Miln/mm3 (4.00-5.20); White Blood Count 6.6 Thou/mm3 (3.6-11.0)
[2024-06-28 14:26] LABS: Alanine Aminotransferase 19 U/L (10-49); Albumin, Serum 4.1 gm/dL (3.4-4.8); Albumin/Globulin Ratio 1.8 (1.2-2.2); Alkaline Phosphatase 66 U/L (46-116); Anion Gap 5 (7-16); Aspartate Amino Transferase 34 U/L (0-34); BUN/Creatinine Ratio 8 Ratio (12-20); Bilirubin,Total 0.8 mg/dL (0.3-1.2); Blood Urea Nitrogen 8 mg/dL (9-23); Calcium 9.4 mg/dL (8.3-10.6); Calcium (Corrected) 9.4 mg/dL (8.5-10.1); Chloride 110 mMol/L (98-107); Globulin 2.3 gm/dL (2.3-3.5); Glucose 103 mg/dL (74-106); Osmolality,Calculated 283 (275-295); Potassium 3.5 mMol/L (3.4-5.1); Sodium 143 mMol/L (136-145); Total Protein 6.4 gm/dL (5.7-8.2); eGFR > 60 See Note
== END 2024-07-18 23:59 | disposition home or self-care (01) ==
LOC: SCTC 13:21
PROVIDERS: PCP Nurse Practitioner Family; Referring Provider Nurse Practitioner Family; Visit Provider Internal Medicine Hematology & Oncology
DX: C82.13 Follicular lymphoma grade II, intra-abdominal lymph nodes (principal); C78.00 Secondary malignant neoplasm of unspecified lung; B02.9 Zoster without complications; L03.116 Cellulitis of left lower limb; Z87.891 Personal history of nicotine dependence; M19.012 Primary osteoarthritis, left shoulder; Z95.0 Presence of cardiac pacemaker
CPT/HCPCS: 80053; 85025; 96360; 96361; 96374; J1200; J1642; J7030; Q3014

== ENCOUNTER 2024-07-23 08:50 | Outpatient (RCR) | payer MEDICAID, SELFPAY ==
[2024-07-20 10:45] LABS: Basophils # (Auto) 0.1 Thou/mm3 (0.0-0.2); Basophils % (Auto) 2 % (0-2.5); Eosinophils # (Auto) 0.4 Thou/mm3 (0.0-0.5); Eosinophils % (Auto) 5 % (0-10); Hematocrit 32.9 % (36.0-46.0); Hemoglobin 11.6 g/dL (12.0-16.0); Immature Granulocytes % (Auto) 1 % (0-0); Immature Granulocytes Auto 0.04 Thou/mm3 (0.00-0.00); Lymphocytes # (Auto) 0.7 Thou/mm3 (1.0-4.8); Lymphocytes % (Auto) 8 % (10-50); Mean Corpuscular HGB Conc 35.3 g/dl (31.0-37.0); Mean Corpuscular Hemoglobin 31.6 pg (25.0-35.0); Mean Corpuscular Volume 90 fL (80-100); Monocytes # (Auto) 0.9 Thou/mm3 (0.0-0.8); Monocytes % (Auto) 11 % (0-12); Neutrophils # (Auto) 6.2 Thou/mm3 (1.8-7.7); Neutrophils % (Auto) 74 % (37-80); Nucleated Red Blood Cell % 0 /100 WBC (0); Platelet Count 240 Thou/mm3 (140-440); RDW Standard Deviation 42.2 fL (36.4-46.3); Red Blood Count 3.67 Miln/mm3 (4.00-5.20); White Blood Count 8.4 Thou/mm3 (3.6-11.0)
[2024-07-20 11:16] LABS: Uric Acid 6.5 mg/dL (3.1-7.8)
[2024-07-20 11:19] LABS: Alanine Aminotransferase 13 U/L (10-49); Albumin, Serum 4.3 gm/dL (3.4-4.8); Alkaline Phosphatase 61 U/L (46-116); Anion Gap 6 (7-16); Aspartate Amino Transferase 26 U/L (0-34); BUN/Creatinine Ratio 13 Ratio (12-20); Bilirubin,Total 0.7 mg/dL (0.3-1.2); Blood Urea Nitrogen 13 mg/dL (9-23); Calcium 9.4 mg/dL (8.3-10.6); Calcium (Corrected) 9.4 mg/dL (8.5-10.1); Carbon Dioxide 27.8 mMol/L (20.0-31.0); Chloride 108 mMol/L (98-107); Globulin 2.2 gm/dL (2.3-3.5); Glucose 107 mg/dL (74-106); LDH (Lactate Dehydrogenase) 209 U/L (120-246); Osmolality,Calculated 283 (275-295); Potassium 4.3 mMol/L (3.4-5.1); Sodium 142 mMol/L (136-145); Total Protein 6.5 gm/dL (5.7-8.2); eGFR > 60 See Note
== END 2024-08-18 23:59 | disposition home or self-care (01) ==
LOC: SCTC 08:50
PROVIDERS: PCP Nurse Practitioner Family; Referring Provider Nurse Practitioner Family; Visit Provider Internal Medicine Hematology & Oncology
DX: Z51.11 Encounter for antineoplastic chemotherapy (principal); C82.15 Follicular lymphoma grade II, lymph nodes of inguinal region and lower limb; L03.116 Cellulitis of left lower limb; B02.9 Zoster without complications; Z87.891 Personal history of nicotine dependence; M19.012 Primary osteoarthritis, left shoulder; Z95.0 Presence of cardiac pacemaker
CPT/HCPCS: 36591; 80053; 83615; 84550; 85025; 96413; 96415; A4216; J1642; J7050; Q5115; A9270

== ENCOUNTER → 2024-07-25 | Outpatient (CLI) | payer MEDICAID, SELFPAY ==
--- NOTE | 2024-07-25 14:30 | ECHO_ITS ---
Transthoracic Echo Report Ht (in): 62 Wt (lb): 132 Exam Location: Echo Lab Status: Preadmit Camp Program Director: LUI Fenton^^^^ Indications: Procedure Performed: BP: / HR: MEASUREMENTS (Male / Female) Normal Values 2D ECHO LV Diastolic Diameter PLAX 5.0 cm 4.2 - 5.9 / 3.9 - 5.3 cm LV Systolic Diameter PLAX 3.0 cm IVS Diastolic Thickness 0.6 cm 0.6 - 1.0 / 0.6 - 0.9 cm LVPW Diastolic Thickness 0.8 cm 0.6 - 1.0 / 0.6 - 0.9 cm LV Relative Wall Thickness 0.3 LVOT Diameter 1.7 cm Aortic Root Diameter 3.0 cm LA Systolic Diameter LX 2.9 cm 3.0 - 4.0 / 2.7 - 3.8 cm LV Ejection Fraction MOD 4C 58.5 % LV Ejection Fraction 4C AL 60.5 % LV Ejection Fraction MOD 2C 58.8 % LV Ejection Fraction 2C AL 60.7 % LA Volume Index 16.5 cm?/m? 16 - 28 cm?/m? DOPPLER AV Peak Velocity 153.0 cm/s AV Peak Gradient 9.4 mmHg AV Mean Gradient 6.0 mmHg AV Velocity Time Integral 28.9 cm AI Peak Velocity 233.5 cm/s AI Peak Gradient 21.8 mmHg AI Pressure Half Time 404.0 ms LVOT Peak Velocity 66.5 cm/s LVOT Peak Gradient 1.8 mmHg LVOT Velocity Time Integral 21.0 cm AV Area Cont Eq vti 1.6 cm? AV Area Cont Eq pk 1.0 cm? TR Peak Velocity 245.3 cm/s TR Peak Gradient 24.1 mmHg PV Peak Velocity 81.8 cm/s PV Peak Gradient 2.7 mmHg RVOT Peak Velocity 45.1 cm/s FINDINGS Left Ventricle Normal left ventricular size, wall thickness, systolic function with no obvious regional wall motion abnormalities. There is grade I diastolic dysfunction of the left ventricle (impaired relaxation pattern). The left ventricular ejection fraction is normal, estimated at 55-60%. Right Ventricle The right ventricle is normal in size and systolic function. The estimated right ventricular systolic pressure, 25 mmHg. Left Atrium The left atrium is normal by two-dimensional, color flow and Doppler imaging with no structural abnormalities, no thrombus formation present. Right Atrium The right atrium is normal by two-dimensional imaging, color flow and Doppler imaging with no structural abnormalities, no thrombus formation present. Atrial Septum The interatrial septum appears normal with no evidence of a shunt. Aorta The aorta is normal by two-dimensional, color flow and Doppler interrogation. Mitral Valve Trace to mild mitral regurgitation. Mild mitral annular calcification. Aortic Valve Aortic valve sclerosis. Trace to mild aortic valve regurgitation. Tricuspid Valve There is mild tricuspid valve regurgitation. Pulmonic Valve Trivial pulmonic valve regurgitation. Vessels The pulmonary artery appears normal. The inferior vena cava pulmonary and hepatic veins appear normal. Pericardium The pericardium is normal by two-dimensional imaging. There is no significant pericardial effusion. CONCLUSIONS indication: Pacemaker LV appears normal with EF 55-60%. RV appears normal with RVSP 25 mmHg. Trace-mild MR & MAC AOV sclerosis Mild TR Lin Santamaria (Electronically Signed) Final Date: 26 Jul 2024 12:00
== END | disposition home or self-care (01) ==
LOC: SDIM 14:10
PROVIDERS: PCP Nurse Practitioner Family; Referring Provider Internal Medicine Hematology & Oncology; Visit Provider Internal Medicine Hematology & Oncology
DX: I08.1 Rheumatic disorders of both mitral and tricuspid valves (principal); C82.93 Follicular lymphoma, unspecified, intra-abdominal lymph nodes
CPT/HCPCS: 93306

== ENCOUNTER 2024-08-29 13:44 | Outpatient (RCR) | payer MEDICAID, SELFPAY ==
--- NOTE | 2024-08-29 14:41 | CTCFLWUP_ITS ---
[facility] [address] [place], [place] [address] FOLLOW-UP NOTE Date: 08/29/2024 MR#: [id number] Name: JOSE ASHBY : 1960 Dx: C82.93 Follicular lymphoma, unspecified, intra-abdominal lymph nodes Identification. Completed Rituxan Bendamustine currently on maintenance Rituxan under Dr. Brown's direction Recently recovered from Insect bite and shingles infections. Refilled pt?s oxycodone 5 mg q6 CURES website checked. Side effects discussed. Electronically signed by: Kapil Treviño M.D. 08/29/2024 2:38 PM
== END 2024-09-17 23:59 | disposition home or self-care (01) ==
LOC: SCTC 13:44
PROVIDERS: PCP Nurse Practitioner Family; Referring Provider Nurse Practitioner Family; Visit Provider Radiology Therapeutic Radiology
DX: C82.15 Follicular lymphoma grade II, lymph nodes of inguinal region and lower limb (principal)
CPT/HCPCS: 99213; G0463

== ENCOUNTER 2024-09-25 10:40 | Outpatient (RCR) | payer MEDICAID, SELFPAY ==
[2024-09-24 08:31] LABS: Basophils # (Auto) 0.1 Thou/mm3 (0.0-0.2); Basophils % (Auto) 2 % (0-2.5); Eosinophils # (Auto) 0.2 Thou/mm3 (0.0-0.5); Eosinophils % (Auto) 4 % (0-10); Hematocrit 30.8 % (36.0-46.0); Hemoglobin 10.8 g/dL (12.0-16.0); Immature Granulocytes Auto 0.02 Thou/mm3 (0.00-0.00); Lymphocytes # (Auto) 0.6 Thou/mm3 (1.0-4.8); Lymphocytes % (Auto) 11 % (10-50); Mean Corpuscular HGB Conc 35.1 g/dl (31.0-37.0); Mean Corpuscular Hemoglobin 32.3 pg (25.0-35.0); Mean Corpuscular Volume 92 fL (80-100); Monocytes # (Auto) 0.7 Thou/mm3 (0.0-0.8); Monocytes % (Auto) 13 % (0-12); Neutrophils # (Auto) 3.7 Thou/mm3 (1.8-7.7); Neutrophils % (Auto) 71 % (37-80); Nucleated Red Blood Cell # 0.00 Thou/mm3 (0.00-0.00); Nucleated Red Blood Cell % 0 /100 WBC (0); Platelet Count 206 Thou/mm3 (140-440); RDW Standard Deviation 42.5 fL (36.4-46.3); Red Blood Count 3.34 Miln/mm3 (4.00-5.20); White Blood Count 5.3 Thou/mm3 (3.6-11.0)
[2024-09-24 08:51] LABS: Alanine Aminotransferase 19 U/L (10-49); Albumin, Serum 4.4 gm/dL (3.4-4.8); Albumin/Globulin Ratio 2.0 (1.2-2.2); Alkaline Phosphatase 63 U/L (46-116); Anion Gap 4 (7-16); Aspartate Amino Transferase 29 U/L (0-34); BUN/Creatinine Ratio 19 Ratio (12-20); Bilirubin,Total 0.6 mg/dL (0.3-1.2); Blood Urea Nitrogen 27 mg/dL (9-23); Calcium 9.9 mg/dL (8.3-10.6); Calcium (Corrected) 9.9 mg/dL (8.5-10.1); Carbon Dioxide 26.5 mMol/L (20.0-31.0); Chloride 111 mMol/L (98-107); Creatinine (Component) 1.4 mg/dL (0.6-1.3); Globulin 2.2 gm/dL (2.3-3.5); Glucose 101 mg/dL (74-106); Osmolality,Calculated 286 (275-295); Potassium 4.5 mMol/L (3.4-5.1); Sodium 141 mMol/L (136-145); Total Protein 6.6 gm/dL (5.7-8.2); eGFR 42 See Note
--- NOTE | 2024-09-26 05:41 | CTCFLWUP_ITS ---
Patient: JOSE ASHBY : 1960 Page 4 of 5 FOLLOW UP NOTE DATE OF SERVICE: 09/25/2024 NAME: JOSE ASHBY ACCOUNT: [id number] : 1960 AGE: 64 INTERVAL HISTORY: Patient is complaining of insect bite on her thigh which has been blistering. She does not know what caused to the bite exactly. She has fatigue and tiredness. She does not want to go to the emergency room. ONCOLOGY HISTORY: DIAGNOSIS: Follicular lymphoma, unspecified, intra-abdominal lymph nodes [ICD10] C82.93 Follicular lymphoma grade 1?2 (07/01/2023), symptomatic with abdominal pain and weight loss History of pacemaker placement 20 years ago. Questionable history of CHF. History of cigarette smoking stopped about 2 weeks ago. 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 symptomatic with abdominal pain and weight loss baseline LVEF 50 to 55% and status post 6 cycles of Bendamustine and rituximab now on maintenance rituximab TREATMENT HISTORY: Care?Plan Start?Date Cycle Day Intent Rituximab?375mg/m*2?maint?q?2month 05/22/2024 1 60 Maintenance Rituxan?375?+?Bendamustine?90?Krystal 08/24/2023 1 28 Palliative HISTORY OF PRESENT ILLNESS: OTHER MEDICAL HISTORY/CONDITIONS: Follicular lymphoma - dx 07/01/23 COPD CHF Neuropathy GERD Insomia Depression / Anxiety PC placement - 07/01/23 JEFF - 15 yrs ago Pacemaker - 20 yrs ago x 3 - 1983; 1987; 1990 FAMILY HISTORY: Cancer?History:?Pt?adopted SOCIAL HISTORY: Occupational?History:?Retired - [employer] Education?Level:?College Graduate, 2 year degree Marital?Status:? Tobacco?Pack?per?Day:?1 Tobacco?Use?Years:?45 Tobacco?Use:?Quit?2?weeks?ago ETOH?Use:?Denies Drug?Note:?Smokes marijuana 3 times / week x 2 yrs Social?History?Note:?Lives?with? IGNITER CAPPER HISTORY: Menarche?-?Age:?15 Menopause:?20yrs?ago :?3 Live?Births:?3 Age?1st?:?22 MEDICATIONS: 1. acyclovir - 400 mg 1 tab twice Daily 2. albuterol sulfate - 90 mcg/actuation 2 Puff(s) Every 4 Hours 3. citalopram - 20 mg 1 tab Daily 4. Coreg - 3.125 mg 3.13 tab Twice a Day 5. diazePAM - 2 mg 1 tab Every day before sleep 6. fluticasone propion-salmeteroL - 230-21 mcg/actuation 1 Inhaler Daily 7. gabapentin - 300 mg 1 Capsule Twice a Day 8. hydrOXYzine HCl - 50 mg 1 tab Daily 9. linaCLOtide - 290 mcg 1 Capsule Daily 10. Linzess - 290 mcg 1 Capsule Daily 11. lisinopril - 10 mg 1 tab Daily 12. ondansetron - 8 mg 1 tab Three times a day 13. oxycodone - 5 mg 1 tab four times a day 14. pantoprazole - 40 mg 1 tab Daily 15. zolpidem - 5 mg 1 tab Every day before sleep Medications Last Reconciled by Princess Jasso MA on 09/25/2024 ALLERGIES: mirtazapine; latex; morphine REVIEW OF SYSTEMS: A complete 14-point review of systems was performed and is negative except as noted in interval history. PHYSICAL EXAMINATION: VITAL SIGNS: Temperature?98.9, B/P?96/69, Oxygen?Saturation?96% PAIN: 0 - No pain ECOG Performance Status: 1 - Symptomatic; ambulatory; restricted in strenuous activity GENERAL APPEARANCE: Appears well, in no apparent distress, appropriately interactive. HEENT: Normocephalic, no temporal wasting, normal conjunctiva, no scleral icterus, normal hearing, lips without lesions, neck normal range of motion. CARDIOVASCULAR: Not assessed. PULMONARY: Normal respiratory effort, no respiratory distress or use of accessory muscles, speaking in full sentences, no tachypnea. EXTREMITIES: No pedal edema or cyanosis. SKIN: Redness with some blistering over the left thigh noted over the camera Shingles noted over the belly NEUROLOGIC: Alert and oriented x4. PSHYCHIATRIC: Appropriate affect, mood normal, behavior normal, intact thought and speech. LABORATORY DATA: I have personally reviewed and interpreted each of the patient?s relevant lab tests, abnormal findings are below: Date 07/20/24 09/24/24 ??WHITE?BLOOD?COUNT?(Thou/mm3) 8.4 5.3 ??RED?BLOOD?COUNT?(Miln/mm3) 3.67?L 3.34?L ??HEMOGLOBIN?(gm/dl) 11.6?L 10.8?L ??HEMATOCRIT?(%) 32.9?L 30.8?L ??PLATELET?COUNT?(Thou/mm3) 240 206 ??NEUTROPHILS?%,?AUTO?(%) 74 71 ??LYMPH?%,?AUTO?(%) 8?L 11 ??NEUTROPHILS,?AUTO?(Thou/mm3) 6.2 3.7 ??GLUCOSE,RANDOM?(mg/dL) 107?H 101 ??BLOOD?UREA?NITROGEN?(mg/dL) 13 27?H ??CREATININE?(mg/dL) 1.00 1.40?H ??SODIUM?(mmol/L) 142 141 ??POTASSIUM?(mmol/L) 4.3 4.5 ??CHLORIDE?(mmol/L) 108?H 111?H ??CrCl?(CandG)?(ml/min) 55.38 39.58 ??AST/SGOT?(Unit/L) 26 29 ??ALT/SGPT?(Unit/L) 13 19 ??ALKALINE?PHOSPHATASE?(Unit/L) 61 63 ??BILIRUBIN,?TOTAL?(mg/dL) 0.7 0.6 ??PROTEIN?TOTAL?(gm/dl) 6.5 6.6 ??ALBUMIN,?SERUM?(gm/dl) 4.3 4.4 ??GLOBULIN?(gm/dl) 2.2?L 2.2?L ??ALBUMIN/GLOBULIN?RATIO 2.0 2.0 ??CALCIUM,?SERUM?(mg/dL) 9.4 9.9 ??CALCIUM?SERUM?(CORRECTED)?(mg/dL) 9.4 9.9 ASSESSMENT/PLAN: #1 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 #2 history of pacemaker placement 20 years ago. Mildly decreased LVEF at 47% and noted to have mildly decreased which has been stable #3 history of cigarette smoking stopped and is now on nicotine replacement #4 pain management PET scan do not show any lymphadenopathy but show activity in the left shoulder Patient likely have arthritis Last PET CT scan was on 08/04/2023. Will repeat PET CT scan to evaluate for any recurrence. Patient has been fatigued and tired which is attributed to her low blood pressure but may have recurrence of cancer I will repeat her PET scan Patient is also anemic Will do anemia workup and if needed will be treated ORDERS: Order # Description [id number] Comprehensive Metabolic Panel - 12 + CBC with Auto Diff + MD Follow Up 2 Months [id number] MRI + Brain + With W/O Contrast [id number] Vitamin B-12 + Folic Acid; Serum RETURN TO CLINIC: I reviewed the diagnosis, prognosis, and recommended treatment/procedure options with the patient (and/or their legal telecommunications sales representative), including the potential benefits, risks, side effects and alternative therapies. We also discussed the option of no treatment and the possibility of clinical trial participation, if applicable. All questions were addressed, and they demonstrated understanding. They provided informed consent to proceed with the proposed plan of care. BILLING AND COMPLIANCE: I reviewed external records from providers outside my specialty as summarized above. I spent a total of 50 minutes on this patient?s care on the day of their visit excluding time spent related to any billed procedures. This time includes time spent with the patient as well as time spent documenting in the medical record, reviewing patients records and tests, obtaining history, placing orders, communicating with other healthcare professionals, counseling the patient, family or caregiver, and/or care coordination for the diagnoses above. Electronically Signed by: {Object.Sanct_ID*PnP.NameFL@M}, {Object.Sanct_ID*PnP.Suffix@U} D: {Object.Sanct_Date} T: {Object.Sanct_Time} CC: PCP: Referring: Nhung Barba This document was completed utilizing speech recognition software. Grammatical errors, random word insertions, pronoun errors, and incomplete sentences are an occasional consequence of this system due to software limitations, ambient noise, and hardware issues. Any formal questions or concerns about the content, text or information contained within the body of this dictation should be directly addressed to the provider for clarification.
== END 2024-10-18 23:59 | disposition home or self-care (01) ==
LOC: SCTC 10:40
PROVIDERS: PCP Nurse Practitioner Family; Referring Provider Nurse Practitioner Family; Visit Provider Internal Medicine Hematology & Oncology
DX: Z51.11 Encounter for antineoplastic chemotherapy (principal); C82.15 Follicular lymphoma grade II, lymph nodes of inguinal region and lower limb; C78.00 Secondary malignant neoplasm of unspecified lung; S70.362A Insect bite (nonvenomous), left thigh, initial encounter; W57.XXXA Bitten or stung by nonvenomous insect and other nonvenomous arthropods, initial encounter; R42 Dizziness and giddiness; R41.3 Other amnesia; R53.83 Other fatigue; Z87.891 Personal history of nicotine dependence; Z95.0 Presence of cardiac pacemaker
CPT/HCPCS: 80053; 85025; 96375; 96413; 96415; 99212; J1200; J1642; J7030; J7050; Q5115; A9270; G0463

== ENCOUNTER → 2024-10-09 | Outpatient (CLI) | payer MEDICAID, SELFPAY ==
--- NOTE | 2024-10-09 08:45 | XR_ITS ---
Examination: Screening digital mammography, bilateral Computer aided detection 3-D breast Tomosynthesis, bilateral Date and time of exam: October 09, 2024 0846 hours Compared to mammograms dating to August 17, 2011 Indication: Screening Technique: Nonmagnified MLO, CC views of the breasts to been obtained, reconstructed from 3-D Tomosynthesis images. R2 computer aided detection program utilized for evaluation of suspicious masses and/or abnormal calcifications. 3-D Tomosynthesis images obtained. Findings: Scattered areas of fibroglandular density. Benign calcifications. No interval suspicious masses Impression: BI-RADS category II: Benign Findings. Recommend 1 year follow-up mammogram.
== END | disposition home or self-care (01) ==
LOC: CDIM 08:33
PROVIDERS: PCP Nurse Practitioner Family; Referring Provider Nurse Practitioner Family; Visit Provider Nurse Practitioner Family
DX: Z12.31 Encounter for screening mammogram for malignant neoplasm of breast (principal); R92.323 Mammographic fibroglandular density, bilateral breasts; R92.1 Mammographic calcification found on diagnostic imaging of breast
CPT/HCPCS: 77063; 77067

== ENCOUNTER 2024-11-28 10:41 | Outpatient (RCR) | payer MEDICAID, SELFPAY ==
[2024-11-23 11:21] LABS: Basophils # (Auto) 0.1 Thou/mm3 (0.0-0.2); Basophils % (Auto) 2 % (0-2.5); Eosinophils # (Auto) 0.2 Thou/mm3 (0.0-0.5); Eosinophils % (Auto) 4 % (0-10); Hematocrit 31.3 % (36.0-46.0); Hemoglobin 10.8 g/dL (12.0-16.0); Immature Granulocytes Auto 0.02 Thou/mm3 (0.00-0.00); Lymphocytes # (Auto) 0.5 Thou/mm3 (1.0-4.8); Lymphocytes % (Auto) 10 % (10-50); Mean Corpuscular HGB Conc 34.5 g/dl (31.0-37.0); Mean Corpuscular Hemoglobin 32.2 pg (25.0-35.0); Mean Corpuscular Volume 93 fL (80-100); Monocytes # (Auto) 0.6 Thou/mm3 (0.0-0.8); Monocytes % (Auto) 11 % (0-12); Neutrophils # (Auto) 3.9 Thou/mm3 (1.8-7.7); Neutrophils % (Auto) 73 % (37-80); Nucleated Red Blood Cell # 0.00 Thou/mm3 (0.00-0.00); Nucleated Red Blood Cell % 0 /100 WBC (0); Platelet Count 211 Thou/mm3 (140-440); RDW Standard Deviation 42.1 fL (36.4-46.3); Red Blood Count 3.35 Miln/mm3 (4.00-5.20); White Blood Count 5.3 Thou/mm3 (3.6-11.0)
[2024-11-23 11:48] LABS: Alanine Aminotransferase 19 U/L (10-49); Albumin, Serum 4.4 gm/dL (3.4-4.8); Albumin/Globulin Ratio 2.2 (1.2-2.2); Alkaline Phosphatase 52 U/L (46-116); Anion Gap 10 (7-16); Aspartate Amino Transferase 33 U/L (0-34); BUN/Creatinine Ratio 13 Ratio (12-20); Bilirubin,Total 0.9 mg/dL (0.3-1.2); Blood Urea Nitrogen 13 mg/dL (9-23); Calcium 10.2 mg/dL (8.3-10.6); Calcium (Corrected) 10.2 mg/dL (8.5-10.1); Carbon Dioxide 24.3 mMol/L (20.0-31.0); Chloride 110 mMol/L (98-107); Creatinine (Component) 1.0 mg/dL (0.6-1.3); Globulin 2.0 gm/dL (2.3-3.5); Glucose 78 mg/dL (74-106); Osmolality,Calculated 285 (275-295); Potassium 3.8 mMol/L (3.4-5.1); Sodium 144 mMol/L (136-145); Total Protein 6.4 gm/dL (5.7-8.2); eGFR > 60 See Note
[2024-11-23 12:00] LABS: Folate > 24.00 ng/mL (>5.38); Vitamin B12 171 pg/mL (211-911)
== END 2024-12-18 23:59 | disposition home or self-care (01) ==
LOC: SCTC 10:41
PROVIDERS: Internal Medicine Hematology & Oncology; PCP Nurse Practitioner Family; Referring Provider Nurse Practitioner Family; Visit Provider Radiology Therapeutic Radiology
DX: Z51.11 Encounter for antineoplastic chemotherapy (principal); C82.13 Follicular lymphoma grade II, intra-abdominal lymph nodes; C78.00 Secondary malignant neoplasm of unspecified lung
CPT/HCPCS: 36591; 80053; 82607; 82746; 85025; 96365; 96375; 96376; 96413; 96415; 99213; A4216; J1200; J1642; J2997; J7040; J7050; Q5115; A9270; G0463

== ENCOUNTER 2024-12-24 10:36 | Emergency (ER) | payer MEDICAID, SELFPAY ==
[2024-12-24 11:07] VITALS: BP 127/60; PULSE 76; RESP 18; TEMP 36.6; O2SAT 97; BMI 22.7
--- NOTE | 2024-12-24 11:20 | EDNOTE_ITS ---
<Statement entered by Angle Adler MD - 12/25/24 16:03> As co-signing physician, I was present and available for consult prn. I concur with the plan and care as documented by the midlevel provider. ED Allergic Reaction RME/HPI General Chief complaint: Allergic Reaction Stated complaint: ALLERGIC TO MOSQUITO BITES Time Seen by Provider: 12/24/24 10:48 Source: patient Arrival date/time: 12/24/24 10:36 64-year-old female with a history of colon cancer presents to the emergency room with a chief complaint of allergic reaction to mosquitoes x 5 days Mode of arrival: ambulatory Limitations: no limitations Related Data Home Medications ?Medication ?Instructions ?Recorded ?Confirmed diazepam 2 mg tablet (Valium) 2 mg PO HS #0 tabs 08/0206/30/23 albuterol sulfate 90 mcg/actuation 2 puff inhalation Q 4H PRN SOB 05/30/19 06/30/23 aerosol inhaler gabapentin 300 mg capsule 300 mg PO BID 05/30/1906/29 citalopram 20 mg tablet 20 mg PO QDAY 06/27/2306/29 linaclotide 290 mcg capsule 290 mcg PO QDAY 06/27/23 0 06/30/23 zolpidem 5 mg tablet 5 mg PO QHS 06/27/23 4 fluticasone propionate 230 See Rx Instructions .Route .COMPLEX 07/01/23 07/01/23 mcg-salmeterol 21 mcg/actuation HFA inhaler Previous Rx's ?Medication ?Instructions ?Recorded pantoprazole 40 mg tablet,delayed 40 mg PO QDAY #30 ta bs 07/10/19 release (Protonix) Allergies Allergy/AdvReac Type Severity Reaction Status Date / Time adhesive tape Allergy Severe BLISTERS Verified 12/24/24 10:40 MOSQUITOS Allergy Severe ITCHING Uncoded 12/24/24 10:40 Review of Systems Review of Systems Systems Reviewed: All systems reviewed, normal except as documented Constitutional Constitutional: Reports system reviewed and no additional complaints, except as documented, Denies fatigue, Denies fever(s), Denies headache(s) and Denies weakness Eyes Eyes: Reports system reviewed and no additional complaints, except as documented, Denies blurry vision and Denies change in vision ENT Ears, Nose, Mouth, and Throat: Reports system reviewed and no additional complaints, except as documented, Denies otalgia, Denies headache(s), Denies nasal congestion, Denies throat swelling and Denies vertigo Cardiovascular Cardiovascular: Reports system reviewed and no additional complaints, except as documented, Denies chest pain, Denies dyspnea and Denies dyspnea on exertion Respiratory Respiratory: Reports system reviewed and no additional complaints, except as documented, Denies chest congestion, Denies cough, Denies dyspnea, Denies dyspnea on exertion and Denies wheezing Gastrointestinal Gastrointestinal: Reports system reviewed and no additional complaints, except as documented, Denies abdominal pain, Denies cramping, Denies nausea and Denies vomiting Genitourinary Genitourinary: Reports system reviewed and no additional complaints, except as documented Musculoskeletal Musculoskeletal: Reports system reviewed and no additional complaints, except as documented and Denies back pain Integumentary/Breasts Skin/Breast: Reports system reviewed and no additional complaints, except as documented and Denies wounds Neurologic Neurologic: Reports system reviewed and no additional complaints, except as documented, Denies confusion, Denies headache(s), Denies lack of coordination, Denies vertigo and Denies weakness Psychiatric Psychiatric: Reports system reviewed and no additional complaints, except as documented, Denies anxiety, Denies confusion, Denies depression, Denies paranoia, Denies suicidal ideation and Denies tactile hallucinations Endocrine Endocrine: Reports system reviewed and no additional complaints, except as documented and Denies fatigue Hematologic/Lymphatic Hematologic/Lymphatic: Reports system reviewed and no additional complaints, except as documented and Denies lymphadenopathy Allergic/Immunologic Allergic/Immunologic: Reports system reviewed and no additional complaints, except as documented, Denies throat swelling, Denies urticaria and Denies wheezing Past Medical History Past Medical History NEUROLOGIC: Negative Seizures CARDIAC: Positive Cardiac Disorders and Congestive Heart Failure RESPIRATORY: Positive Chronic Obstructive Pulmonary Disease (COPD) and Asthma GENITOURINARY: Negative Renal Disease ENDOCRINE: Negative Diabetes Mellitus Type 1 or Diabetes Mellitus Type 2 HEMATOLOGIC: Negative Sickle Cell Disease OTHER HISTORY: Positive Blood Transfusions; Negative Blood Transfusion Reaction or Anesthesia Reactions Surgical History SURGICAL: Positive Pacemaker and Hysterectomy Social History SMOKING STATUS: Former smoker SECOND HAND EXPOSURE: No SUBSTANCE USE: marijuana (smokes daily) ED Exam General Limitations: Present no limitations General appearance: Present alert and in no apparent distress Head Head exam: Present atraumatic Eye Eye exam: Present normal appearance, PERRL and EOMI ENT ENT exam: Present normal exam, normal oropharynx and mucous membranes moist Neck Neck exam: Present normal inspection, full ROM and trachea midline Chest Chest inspection: Present normal inspection and symmetric chest wall rise Respiratory Respiratory exam: Present normal lung sounds bilaterally Cardiovascular Cardiovascular exam: Present regular rate, normal rhythm and normal heart sounds Abdominal Exam Abdominal exam: Present soft and normal bowel sounds Extremities Exam Extremities exam: Present normal inspection and full ROM Back Exam Back exam: Present normal inspection and full ROM Neurological Exam Neurological exam: Present alert, oriented X3 and CN II-XII intact Psychiatric Psychiatric exam: Present normal affect and normal mood Skin Skin exam: Present warm, dry, intact and normal color Course Quality Measures none Orders Category Date Time Status Insert IV STAT Care 12/24/24 12:35 Completed DiphenhydrAMINE INJ [Benadryl Inj] Med 12/24/24 12:35 Discontinued 12.5 mg IVP X1 ONE DiphenhydrAMINE INJ [Benadryl Inj] Med 12/24/24 11:16 Discontinued 25 mg IM X1 ONE Famotidine [Pepcid] Med 12/24/24 11:16 Discontinued 20 mg PO X1 ONE dexAMETHasone TAB [Decadron Tab] Med 12/24/24 11:16 Discontinued 10 mg PO X1 ONE Vital Signs Vital signs: Vital Signs Temperature 98 F 12/24/24 11:07 Pulse Rate 76 12/24/24 11:07 Respiratory Rate 18 12/24/24 11:07 Blood Pressure 127/60 12/24/24 11:07 Pulse Oximetry (%) 97 12/24/24 11:07 Oxygen Delivery Method Room Air 12/24/24 11:07 Allergic Reaction MDM Narrative MDM Narrative:: 64-year-old female with a history of colon cancer presents to the emergency room with a chief complaint of allergic reaction to mosquitoes x 5 days Patient is hemodynamically stable and in no apparent distress Physical examination shows clear bilateral lung sounds there is no stridor there is no difficulty breathing or any signs of respiratory distress There is no tongue swelling lip swelling or throat swelling. Patient states she is having itchiness throughout her whole body. Antihistamines were given with some mild improvement to her symptoms. Patient requested another dose of Tylenol and a dose of Tylenol was given and the patient was discharged Patient was discharged and educated to follow-up with primary care provider in the next 24 to 48 hours and return to the emergency room for any evidence of worsening signs or symptoms Patient data External records reviewed:: [facility] previous records Clinical information provided by:: patient Social determinants that could affect healthcare access:: none Patient has the following chronic illnesses:: No chronic illness How is presenting disease/condition affected by chronic disease/condition?: no chronic disease Evaluation data The following diagnostics were reviewed and interpreted by me:: lab results and radiology exam(s) Lab and/or radiology exams considered but not ordered:: Labs and radiology exams considered and ordered Interpretation Summary: N/A Medications / Prescriptions Medications or Prescriptions considered but not ordered:: Medication given Medication administrations:: Medication Administration History Discontinued Medications Dexamethasone (Dexamethasone 4 Mg Tablet) 10 mg PO X1 ONE Stop: 12/24/24 11:17 Last Admin: 12/24/24 11:50 Dose: 10 mg Documented By: ARF Diphenhydramine HCl (Diphenhydramine Inj 50 Mg/Ml Vial) 25 mg IM X1 ONE Stop: 12/24/24 11:17 Last Admin: 12/24/24 11:50 Dose: 25 mg Documented By: ARF Diphenhydramine HCl (Diphenhydramine Inj 50 Mg/Ml Vial) 12.5 mg IVP X1 ONE Stop: 12/24/24 12:36 Last Admin: 12/24/24 13:24 Dose: 12.5 mg Documented By: OA Comments: This dose was given IM per providers orders Famotidine (Famotidine 20 Mg Tablet) 20 mg PO X1 ONE Stop: 12/24/24 11:17 Last Admin: 12/24/24 11:51 Dose: 20 mg Documented By: ARF Medication given Consultations Consultation(s) initiated? (list below): No Diagnosis Differential Diagnosis allergic reaction: anaphylaxis, allergic reaction, contact dermatitis and urticaria Most likely diagnosis given after review of the tests above:: Allergic reaction Admission Indicated Admission indicated?: not indicated Admission Request Was there a request for admission?: No Disposition Plan Disposition Plan: Discharge Discharge Attestation Discharge Attestation: The patient and all family members were given an opportunity to ask questions and understood the discharge instructions. Discharge instructions specifically effects, indications for sooner follow up or return to the emergency department, and the expected course of current diagnosis. Patient condition: Stable Discharge Plan Plan Patient Disposition: HOME (Self Care) Discharge Disposition comment: Stable Prescriptions/Referrals Prescriptions/Med Rec: No Action citalopram 20 mg tablet 20 mg PO QDAY linaclotide 290 mcg capsule 290 mcg PO QDAY zolpidem 5 mg tablet 5 mg PO QHS Rx Instructions: may repeat once if no response in 30-60 minutes diazepam [Valium] 2 MG tablet 2 mg PO HS Qty: 0 gabapentin 300 mg Capsule 300 mg PO BID albuterol sulfate 90 mcg/actuation HFA aerosol inhaler 2 puff INH Q4H PRN (Reason: SOB) pantoprazole [Protonix] 40 mg tablet,delayed release (DR/EC) 40 mg PO QDAY Qty: 30 0RF fluticasone propion-salmeterol 230-21 mcg/actuation Hfa Aerosol Inhaler See Rx Instructions .ROUTE .COMPLEX Rx Instructions: one inhalation daily Problem List Clinical Impression: Allergic reaction Patient/Caregiver Discharge Instructions Education Materials: ED Medicine Reaction: Allergic Additional Instructions: Please follow-up with your primary care provider in the next 24 to 48 hours For any evidence of worsening signs or symptoms return to emergency room immediately Print Language: Indian Stand Alone Forms: Heike Award Info., Patient Portal Info Letter PA/AGING DEPARTMENT SUPERVISOR Supervising Physician PA/AGING DEPARTMENT SUPERVISOR Supervising Physician: Dr. ADLER
[2024-12-24] MEDS: FAMOTIDINE 20 MG TABLET PO (11:51)
== END 2024-12-24 14:55 | disposition home or self-care (01) ==
LOC: SERX 13:44
PROVIDERS: Emergency Provider Emergency Medicine; PCP Nurse Practitioner Family
DX: T63.481A Toxic effect of venom of other arthropod, accidental (unintentional), initial encounter (principal); L29.9 Pruritus, unspecified
CPT/HCPCS: 96372; 99283; J1200; J8540; A9270

== ENCOUNTER 2025-01-28 07:42 | Outpatient (RCR) | payer MEDICAID, SELFPAY ==
[2025-01-25 12:43] LABS: Basophils # (Auto) 0.1 Thou/mm3 (0.0-0.2); Basophils % (Auto) 2 % (0-2.5); Eosinophils # (Auto) 0.4 Thou/mm3 (0.0-0.5); Eosinophils % (Auto) 8 % (0-10); Hematocrit 31.7 % (36.0-46.0); Hemoglobin 10.7 g/dL (12.0-16.0); Immature Granulocytes Auto 0.06 Thou/mm3 (0.00-0.00); Lymphocytes # (Auto) 0.5 Thou/mm3 (1.0-4.8); Lymphocytes % (Auto) 9 % (10-50); Mean Corpuscular HGB Conc 33.8 g/dl (31.0-37.0); Mean Corpuscular Hemoglobin 32.7 pg (25.0-35.0); Mean Corpuscular Volume 97 fL (80-100); Monocytes # (Auto) 0.8 Thou/mm3 (0.0-0.8); Monocytes % (Auto) 15 % (0-12); Neutrophils # (Auto) 3.6 Thou/mm3 (1.8-7.7); Neutrophils % (Auto) 65 % (37-80); Nucleated Red Blood Cell # 0.00 Thou/mm3 (0.00-0.00); Nucleated Red Blood Cell % 0 /100 WBC (0); Platelet Count 261 Thou/mm3 (140-440); RDW Standard Deviation 43.8 fL (36.4-46.3); Red Blood Count 3.27 Miln/mm3 (4.00-5.20); White Blood Count 5.5 Thou/mm3 (3.6-11.0)
[2025-01-25 12:51] LABS: Alanine Aminotransferase 18 U/L (10-49); Albumin, Serum 4.5 gm/dL (3.4-4.8); Albumin/Globulin Ratio 2.5 (1.2-2.2); Alkaline Phosphatase 70 U/L (46-116); Anion Gap 8 (7-16); Aspartate Amino Transferase 31 U/L (0-34); BUN/Creatinine Ratio 12 Ratio (12-20); Bilirubin,Total 0.7 mg/dL (0.3-1.2); Blood Urea Nitrogen 13 mg/dL (9-23); Calcium 9.3 mg/dL (8.3-10.6); Calcium (Corrected) 9.3 mg/dL (8.5-10.1); Carbon Dioxide 27.9 mMol/L (20.0-31.0); Chloride 106 mMol/L (98-107); Creatinine (Component) 1.1 mg/dL (0.6-1.3); Globulin 1.8 gm/dL (2.3-3.5); Glucose 84 mg/dL (74-106); Osmolality,Calculated 282 (275-295); Potassium 3.7 mMol/L (3.4-5.1); Sodium 142 mMol/L (136-145); Total Protein 6.3 gm/dL (5.7-8.2); eGFR 56 See Note
== END 2025-02-17 23:59 | disposition home or self-care (01) ==
LOC: SCTC 07:42
PROVIDERS: Internal Medicine Hematology & Oncology; PCP Nurse Practitioner Family; Referring Provider Nurse Practitioner Family; Visit Provider Radiology Therapeutic Radiology
DX: Z51.11 Encounter for antineoplastic chemotherapy (principal); C82.93 Follicular lymphoma, unspecified, intra-abdominal lymph nodes; C78.00 Secondary malignant neoplasm of unspecified lung
CPT/HCPCS: 36591; 80053; 85025; 96374; 96375; 96413; 96415; A4216; J1200; J1642; J7050; Q5115; A9270

== ENCOUNTER 2025-02-27 11:21 | Outpatient (RCR) | payer MEDICAID, SELFPAY ==
--- NOTE | 2025-02-27 12:01 | CTCFLWUP_ITS ---
[facility] [address] [place], [place] [address] FOLLOW-UP NOTE Date: 02/27/2025 MR#: [id number] Name: JOSE ASHBY : 1960 Dx: C82.93 Follicular lymphoma, unspecified, intra-abdominal lymph nodes Identification. Patient with follicular lymphoma stage IV grade 1-2 pulmonary metastatic nodules symptomatic with abdominal pain and weight loss. Received rituximab Bendamustine 08/24/2023 through 01/18/2024. Currently receiving maintenance Rituxan. Taking oxycodone 5 mg 4 times daily as needed. Still experiencing left shoulder pain of longstanding, felt to be noncancer related. Can raise her left arm about 90 degrees, without significant pain. New imaging studies reportedly pending. Last PET was 12/08/2023 which showed considerable improvement compared to 1 done prior. Assessment. 1. .Stage IV follicular lymphoma Currently receiving maintenance Rituxan. 2. Pt sees Dr. Brown next month. 3. I renewed her oxycodone which is helping her left shoulder pain 4. checked cures website and will see her again in 3 months. Electronically signed by: Kapil Treviño M.D. 02/27/2025 11:58 AM
== END 2025-03-20 23:59 | disposition home or self-care (01) ==
LOC: SCTC 11:21
PROVIDERS: PCP Nurse Practitioner Family; Referring Provider Nurse Practitioner Family; Visit Provider Radiology Therapeutic Radiology
DX: C82.18 Follicular lymphoma grade II, lymph nodes of multiple sites (principal); M25.512 Pain in left shoulder
CPT/HCPCS: 99213; G0463